=== PATIENT | female | born 1990 | race African-American/Black ===

== ENCOUNTER 2021-11-26 13:42 | Emergency (ER) | payer OTHER ==
[~2021-11-26] VITALS: Ht 167.6 cm; Wt 90.9 kg
[2021-11-26 13:42] VITALS: BP 142/75
[2021-11-26] MEDS ORDERED: KETOROLAC 60MG 2ML VIAL IM ONE (17:30)
== END 2021-11-26 18:21 | disposition home or self-care (01) ==
LOC: M ED 13:42
DX: S93.401A Sprain of unspecified ligament of right ankle, initial encounter (principal); S93.611A Sprain of tarsal ligament of right foot, initial encounter; W10.9XXA Fall (on) (from) unspecified stairs and steps, initial encounter; Y92.099 Unspecified place in other non-institutional residence as the place of occurrence of the external cause; Y93.9 Activity, unspecified; Y99.9 Unspecified external cause status
CPT/HCPCS: 73610; 73630; 96372; 99282; J1885